=== PATIENT | female | born 1970 | race Caucasian/White ===

== ENCOUNTER → 2020-06-22 15:02 | Outpatient (BNVA) | payer MEDICAID, SELFPAY | PROVIDERS: PCP Nurse Practitioner Family; Visit Provider Specialist | DX: E78.5 Hyperlipidemia, unspecified (principal); I10 Essential (primary) hypertension; R20.0 Anesthesia of skin; R20.2 Paresthesia of skin; G56.02 Carpal tunnel syndrome, left upper limb; F17.210 Nicotine dependence, cigarettes, uncomplicated | CPT/HCPCS: 36415; 80053; 80061; 95908 ==

== ENCOUNTER → 2020-07-19 10:27 | Outpatient (BNVA) | payer SELFPAY | PROVIDERS: PCP Nurse Practitioner Family; Visit Provider Nurse Practitioner Family | DX: R21 Rash and other nonspecific skin eruption (principal); M25.561 Pain in right knee | CPT/HCPCS: 85025; 85651 ==

== ENCOUNTER → 2020-08-01 09:21 | Outpatient (BNVA) | payer MEDICAID, SELFPAY | PROVIDERS: PCP Nurse Practitioner Family; Referring Provider Nurse Practitioner Family; Visit Provider Specialist | DX: G56.02 Carpal tunnel syndrome, left upper limb (principal) | CPT/HCPCS: 73110 ==

== ENCOUNTER 2020-08-01 10:19 | Outpatient (CLI) | payer MEDICAID, SELFPAY | END 2020-08-01 10:20 | disposition home or self-care (01) | LOC: SPT 11:38 | PROVIDERS: PCP Nurse Practitioner Family; Visit Provider Specialist | DX: Z46.89 Encounter for fitting and adjustment of other specified devices (principal); G56.02 Carpal tunnel syndrome, left upper limb | CPT/HCPCS: 87635; L3908 ==

== ENCOUNTER 2020-08-12 13:24 | Inpatient (IN) | payer SELFPAY ==
[2020-08-12 13:44] VITALS: BP 122/87; PULSE 101; RESP 18; TEMP 36.7; O2SAT 98; BMI 30.8
[2020-08-12 17:34] LABS: Add Urine Microscopic? NO
[2020-08-12 17:36] LABS: Basophils # 0.1 10^3/uL (0.0-0.1); Basophils % 0.9 %; Eosinophils # 0.1 10^3/uL (0.0-0.8); Eosinophils % 1.9 %; Hematocrit 45.3 % (37.0-47.0); Hemoglobin 14.9 g/dL (11.5-15.3); Lymphocytes # 1.9 10^3/uL (0.8-4.8); Lymphocytes % 27.4 %; Mean Corpuscular HGB Conc 32.9 g/dL (30.0-36.0); Mean Corpuscular Hemoglobin 31.7 pg (28.0-34.0); Mean Corpuscular Volume 96.4 fL (81-99); Mean Platelet Volume 9.8 fL (7.4-10.4); Monocytes # 0.4 10^3/uL (0.2-0.9); Monocytes % 5.5 %; Neutrophils # 4.46 10^3/uL (1.8-7.7); Nucleated Red Blood Cells % 0 %; Platelet Count 270 10^3/cmm (130-400); Red Cell Distribution Width 14.6 % (12.1-15.1)
[2020-08-12 17:47] LABS: Bilirubin Urine Neg (Negative); Blood Urine Neg (Negative); Glucose Urine UA 2+ (Normal); Ketones Urine Negative (Negative); Leukocyte Esterase Urine Negative (Negative); Nitrate Urine Negative (Negative); Protein Urine Neg (Negative); Specific Gravity, Urine 1.015 (1.005-1.030); Urine Appearance Clear (CLEAR); Urine Color Straw (Yellow); Urobilinogen Urine Norm (Negative); pH Urine 5 (5-7)
[2020-08-12 17:59] VITALS: RESP 18
[2020-08-12 18:07] LABS: Alanine Aminotransferase 62 U/L (0-33); Albumin Level 3.9 g/dL (3.5-5.2); Alkaline Phosphatase 97 IU/L (35-105); Anion Gap 14.9 (5-19); Aspartate Amino Transferase 60 U/L (0-32); Blood Urea Nitrogen 9 mg/dL (6-20); Calcium 9.4 mg/dL (8.5-10.5); Carbon Dioxide 24 mmol/L (22-29); Chloride 99 mmol/L (98-107); Globulin 3.1 g/dL (1.3-4.6); Glomerular Filtration Rate 167.6 mL/min (90-130); Glucose 141 mg/dL (65-115); Osmolality Calculated 279 mOsm/kg (285-295); Potassium 3.9 mmol/L (3.5-5.1); Sodium 134 mmol/L (136-145); Total Bilirubin 0.2 mg/dL (0.15-1.2)
[2020-08-12 18:09] LABS: Acetaminophen < 5.0 ug/mL (10-30); Salicylate < 0.3 mg/dL (3-10)
[2020-08-12 18:12] LABS: Amphetamines Screen Urine Positive (Negative); Barbiturates Screen Urine Negative (Negative); Benzodiazepines Screen Urine Negative (Negative); Cocaine Screen Urine Negative (Negative); Opiate Screen Urine Negative (Negative); PCP Screen Urine Negative (Negative); THC Screen Urine Negative (Negative)
[2020-08-12 18:13] VITALS: RESP 18
[2020-08-12 18:24] LABS: HCG Qualitative Urine. Negative (Negative)
--- NOTE | 2020-08-12 18:55 | W.ED.ANXIETY ---
HPI - Anxiety General: Chief Complaint: Anxiety Stated Complaint: STATES BRIAN WANTS TO GO TO NPU Time Seen by Provider: 08/12/20 14:05 Source: patient Mode of arrival: ambulatory Limitations: no limitations History of Present Illness: HPI narrative: This is a 50 year old female with a history of depression and anxiety who presents to the ED with worsening symptoms of anxiety and depression. She is going through lots of social stressors including losing her home and her significant other. She has tried to go to a homeless half-way but when she called them they were no open and so she has nowhere else to go. She is very depressed and tearful during my evaluation. She denies homicidal or suicidal ideations. She denies hallucinations. MD complaint: anxiety and heart racing Onset (ago): week(s) (2) Symptoms: palpitations and dry mouth Severity: severe Quality: constant Provoking factors: emotional stress Relieving factors: nothing Exacerbating factors: nothing Associated symptoms: Reports palpitations; Deny anorexia, chest pain, chills, confusion, diaphoresis, fever(s), headache(s), malaise, nausea, short of breath, syncope, vomiting or weakness Review of Systems General: Reports: 10 or more systems reviewed and unremarkable except in HPI and below Const: Denies: fever(s), chills, malaise or diaphoresis Card: Reports: palpitations; Denies: chest pain or syncope GI: Denies: nausea or vomiting Neuro: Denies: headache(s) or confusion PFS ED PFSH: Medical History (Reviewed 08/12/20 @ 19:00 by Zakiya Coughlin MD, [facility] Hyperlipemia Hypertension Surgical History (Reviewed 08/12/20 @ 19:00 by Zakiya Coughlin MD, [facility]) History of Family History (Reviewed 08/12/20 @ 19:00 by Zakiya Coughlin MD, [facility]) Mother Diabetes Father Cancer lung cancer Social History (Reviewed 08/12/20 @ 19:00 by Zakiya Coughlin MD, [facility]) Smoking and tobacco status: current every day smoker Physical Exam Const: COMMON NORMALS: no acute distress, average body habitus, patient oriented x3, no limitations, healthy appearing, alert and well nourished HENMT: COMMON NORMALS: normocephalic, atraumatic and moist oral mucous membranes HEAD & SCALP: normocephalic and atraumatic Neck/C-Spine: COMMON NORMALS: no meningeal signs and no JVD Resp: COMMON NORMALS: normal respiratory effort, No retractions, No use of accessory muscles, clear to auscultation bilaterally and percussion normal AUSCULTATION: clear to auscultation bilaterally PERCUSSION: percussion normal Cardio: COMMON NORMALS: no JVD, regular rate, regular rhythm, S1 normal heart sound present, S2 normal heart sound present, No gallops present (Cardio), No clicks present (Cardio), No murmurs present (Cardio), No rub (Cardio) and Peripheral pulses 2+ throughout RATE: regular rate RHYTHM: regular rhythm HEART SOUNDS: S1 normal heart sound present and S2 normal heart sound present PERIPHERAL PULSES: Peripheral pulses 2+ throughout GI: COMMON NORMALS: Normal to inspection, nondistended, normoactive bowel sounds present, Soft to palpation, non-tender, No hepatosplenomegaly present, no masses and no bruits PALPATION: Yes Soft to palpation and Yes No hepatosplenomegaly present Extremity: COMMON NORMALS: normal to inspection, full ROM, capillary refill normal, no calf tenderness and no pedal edema Neuro: COMMON NORMALS: patient oriented x3 SENSORIUM/ORIENTATION: Yes alert MENINGEAL SIGNS: Yes no meningeal signs Skin: COMMON NORMALS: no rashes or lesions noted, no wounds, turgor normal, no jaundice, no petechiae and no mottling GENERAL SKIN EXAM: no rashes or lesions noted and turgor normal Course Consultations: Consultation #1: Discussed the patient with Dr. Moulton, who came to the ED and evaluated her. He kindly accepted the patient to his service. Time: 17:03 Vital Signs: Vital signs: Vital Signs Temperature 98 F 08/12/20 18:59 Pulse Rate 92 08/12/20 18:59 Respiratory Rate 20 H 08/12/20 18:59 Blood Pressure 153/88 08/12/20 18:59 Pulse Oximetry 96 08/12/20 18:59 MDM - Anxiety MDM Narrative: Medical decision making narrative: This unfortunate 50 year old female is undergoing significant life stressors including losing her home and her significant other. She is fairly anxious and depressed. She tried to go to a homeless half-way but they were closed. She is admitted to the NPU for further evaluation and management. Medical Records: Attestation: I reviewed the patient's medical records. Lab Data: Labs: Lab Results 08/12/20 08/12/20 08/12/20 Range/Units 13:51 13:51 13:51 HCG, Qual Negative (Negative) Urine Color Straw (Yellow) Urine Appearance Clear (CLEAR) Urine pH 5 (5-7) Ur Specific Gravit y 1.015 (1.005-1.030) Urine Protein Neg (Negative) Urine Glucose (UA) 2+ (Normal) Urine Ketones Negative (Negative) Urine Blood Neg (Negative) Urine Nitrate Negative (Negative) Urine Bilirubin Neg (Negative) Urine Urobilinogen Norm (Negative) mg/dL Ur Leukocyte Sara ase Negative (Negative) Urine Opiates Scre en Negative (Negative) ng/mL Ur Barbiturates Sc reen Negative (Negative) ng/mL Ur Phencyclidine S crn Negative (Negative) ng/mL Ur Amphetamines Sc reen Positive H (Negative) ng/mL U Benzodiazepines Scrn Negative (Negative) ng/mL Urine Cocaine Scre en Negative (Negative) ng/mL U Marijuana (THC) Screen Negative (Negative) ng/mL Discharge Plan Discharge Patient Disposition: Admitted As Inpatient Admit Provider: Slim Moulton Clinical Impression: Acute anxiety, Homeless Depression Qualifiers: Depression Type: unspecified Qualified Code(s): F32.9 - Major depressive disorder, single episode, unspecified Condition: Stable Coding Level of Care Code ED Dog Handler Or Trainer for Guilherme Ivan Exam Comprehensive
[2020-08-12 18:59] VITALS: BP 153/88; PULSE 92; RESP 20; TEMP 36.6; O2SAT 96
--- NOTE | 2020-08-12 20:07 | P.PN_ITS ---
NPU Therapy Progress Note Therapy Progress Note Date: 08/12/20 Time In: 18:20 Time Out: 18:25 Symptoms Reported: none reported but appears tearful and depressed Mood: sad, tearful Progress Note: SENIOR HOUSEKEEPER approached Mellissa who is resting in her bed. She declines to speak but does state she is having a hard time. She allows SENIOR HOUSEKEEPER to tell her about [facility] services and the [facility] office. Intervention: SENIOR HOUSEKEEPER attempted to engage Mellissa; however, she wants to rest and politely asks if she can talk another time. She does allow SENIOR HOUSEKEEPER to educate about [facility] services and how to access [facility] if needed. She is agreeable to take [facility] card and [facility] pamphlet. Reported Goals Before Discharge: none reported
[2020-08-12] MEDS: nicotine 2 mg Gum BUCCAL (20:18)
[2020-08-12 20:37] VITALS: BP 154/83; PULSE 100; RESP 18; TEMP 37; O2SAT 96
[2020-08-13 06:00] VITALS: BP 152/94; PULSE 84; RESP 17; TEMP 36.8; O2SAT 97
[2020-08-13] MEDS: nicotine 2 mg Gum BUCCAL ×3 (08:12→19:00)
[2020-08-13] MEDS: multivitamin therapeutic Tablet 1 TAB PO (08:12)
[2020-08-13] MEDS: fluoxetine 20 mg Capsule PO (10:32)
[2020-08-13 14:00] VITALS: BP 123/81; PULSE 92; RESP 18; TEMP 36.6; O2SAT 96
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
[2020-08-13 20:12] VITALS: BP 131/76; PULSE 100; RESP 18; TEMP 36.4; O2SAT 97
[2020-08-13] MEDS: trazodone 50 mg Tablet PO (20:23)
--- NOTE | 2020-08-13 20:25 | PC.NURSE ---
pt came to nurses desk requesting med for sleep. Trazodone 50mg given.
--- NOTE | 2020-08-13 20:59 | PC.NURSE ---
Pt resting quietly in room with both eyes closed.
[2020-08-14 06:00] VITALS: BP 148/77; PULSE 78; RESP 16; TEMP 37.1; O2SAT 95
[2020-08-14] MEDS: fluoxetine 20 mg Capsule PO (08:12)
[2020-08-14] MEDS: multivitamin therapeutic Tablet 1 TAB PO (08:12)
[2020-08-14] MEDS: nicotine 2 mg Gum BUCCAL ×2 (09:56→17:13)
[2020-08-14 13:39] VITALS: BP 124/57; PULSE 82; RESP 18; TEMP 36.8; O2SAT 96
--- NOTE | 2020-08-14 14:45 | PM.NPN ---
Subjective NPU Subjective: Interval history: Mellissa presents today reporting that she is tolerating the Prozac but she feels maybe is making her sleepy. We discussed the likelihood that that is making her sleepy but a stressful situation and finally having a place she can rest. But we discussed the possibility of moving it to nighttime if this phenomenon continues. We also discussed connecting with the treatment team the morning and exploring the possibility for rehab. Mental Status Exam MSE Comments: This is an obese woman of descent with hospital scrubs on with limited grooming and adequate eye contact. No abnormal movements except for improving psychomotor retardation. Cooperative with exam in mild distress. Speech was decreased rate and volume. Mood described as anxious, affect congruent and less guarded. Thought process organized. Thought content: Patient denied current suicidal or homicidal ideation, there were no delusions reported or noted, she denied any auditory visualizations. Attention and concentration were intact and memory appeared reliable but none were formally tested. She is alert and oriented x3. Insight and judgment were limited, but improving impulse control is limited. Vitals/I&O/Wt Last Vital Signs Temp 98.2 F 08/14/20 20:57 Pulse 82 08/14/20 20:57 Resp 17 08/14/20 20:57 BP 132/65 08/14/20 20:57 Pulse Ox 96 08/14/20 20:57 Weight last 48 hrs Weight 71.668 kg Data NPU : 08/12/20 17:10 08/12/20 17:10 A&P Additional A&P Information (1) Acute anxiety: (2) Depression: (3) Homeless: (4) Left carpal tunnel syndrome: (5) Hyperlipemia: (6) Hypertension: (7) Adjustment disorder with mixed disturbance of emotions and conduct: Additional A&P Information This is a 51-year-old female with a long history of addiction and recent psychosocial challenges which together became overwhelming and led to uncontrolled anxiety as well as brief suicidal thinking which she currently denies but is open to medication for her acute mental health issues. 1. Continue current medication. Start Inderal 20 mg p.o. 3 times daily in the morning. 2. Continue every 15 minute checks for safety. 3. Encourage individual, group and milieu therapies. 4. Encourage sober living treatment after discharge at the highest level of care to which he is willing to commit. Involuntary Hold Information 96 Hour Hold: 96 Hour Involuntary Admission: No Attestations NPU Medical Necessity Statement*: Inpatient hospitalization is medically necessary and the clinically appropriate intervention at this time. We will monitor medications and make changes as indicated. Patient will be in the hospital for over two midnights. Likely length of stay 2-4 days. Coding Level of Care Code Acute Printing Machine Operator for Guilherme Ivan
[2020-08-14 20:57] VITALS: BP 132/65; PULSE 82; RESP 17; TEMP 36.8; O2SAT 96
[2020-08-15 06:00] VITALS: BP 147/77; PULSE 62; RESP 18; TEMP 36.4; O2SAT 98
[2020-08-15] MEDS: multivitamin therapeutic Tablet 1 TAB PO (07:50)
[2020-08-15] MEDS: fluoxetine 20 mg Capsule PO (07:51)
[2020-08-15] MEDS: nicotine 2 mg Gum BUCCAL (11:40)
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
[2020-08-15 12:55] VITALS: BP 147/77; PULSE 62; RESP 18; TEMP 36.4; O2SAT 98
--- NOTE | 2020-08-17 17:06 | PC.RESP ---
Smoking Cessation information sent to patient.
== END 2020-08-15 13:48 | disposition home or self-care (01) | DRG 880 ==
LOC: ER 14:05 → NP 18:14
PROVIDERS: Admitting Provider Psychiatry & Neurology Psychiatry; Emergency Provider Family Medicine; PCP Nurse Practitioner Family; Visit Provider Psychiatry & Neurology Psychiatry
DX: F41.9 Anxiety disorder, unspecified (principal); R45.851 Suicidal ideations; F15.20 Other stimulant dependence, uncomplicated; F32.9 Major depressive disorder, single episode, unspecified; F43.25 Adjustment disorder with mixed disturbance of emotions and conduct; F17.210 Nicotine dependence, cigarettes, uncomplicated; E78.5 Hyperlipidemia, unspecified; I10 Essential (primary) hypertension; G56.02 Carpal tunnel syndrome, left upper limb; Z59.0 Homelessness; Z81.8 Family history of other mental and behavioral disorders
CPT/HCPCS: 80053; 80306; 80307; 81003; 81025; 85025; 99285

== ENCOUNTER 2020-08-30 19:03 | Emergency (ER) | payer SELFPAY ==
[2020-08-30 19:04] VITALS: BP 163/96; PULSE 108; RESP 18; TEMP 36.6; O2SAT 96; BMI 37.0
[2020-08-30 19:51] LABS: Add Urine Microscopic? NO; Charge for UA Resulting for Rev
[2020-08-30 19:52] LABS: Bilirubin Urine Neg (Negative); Blood Urine Neg (Negative); Glucose Urine UA 2+ (Normal); Ketones Urine Negative (Negative); Leukocyte Esterase Urine Negative (Negative); Nitrate Urine Negative (Negative); Protein Urine Neg (Negative); Specific Gravity, Urine 1.005 (1.005-1.030); Urine Appearance Clear (CLEAR); Urine Color Colorless (Yellow); Urobilinogen Urine Norm (Negative); pH Urine 6 (5-7)
[2020-08-30 20:03] VITALS: BP 143/63; PULSE 115; RESP 15; O2SAT 96
[2020-08-30 20:39] LABS: Amphetamines Screen Urine Negative (Negative); Barbiturates Screen Urine Negative (Negative); Benzodiazepines Screen Urine Negative (Negative); Cocaine Screen Urine Negative (Negative); Opiate Screen Urine Negative (Negative); PCP Screen Urine Negative (Negative); THC Screen Urine Negative (Negative)
[2020-08-30 20:51] LABS: Basophils # 0.1 10^3/uL (0.0-0.1); Eosinophils # 0.1 10^3/uL (0.0-0.8); Eosinophils % 1.1 %; Hematocrit 46.7 % (37.0-47.0); Hemoglobin 15.6 g/dL (11.5-15.3); Lymphocytes # 3.3 10^3/uL (0.8-4.8); Mean Corpuscular HGB Conc 33.4 g/dL (30.0-36.0); Mean Corpuscular Hemoglobin 31.3 pg (28.0-34.0); Mean Corpuscular Volume 93.8 fL (81-99); Mean Platelet Volume 9.2 fL (7.4-10.4); Monocytes # 0.6 10^3/uL (0.2-0.9); Monocytes % 6.8 %; Neutrophils # 4.26 10^3/uL (1.8-7.7); Neutrophils % 50.9 %; Nucleated Red Blood Cells % 0 %; Platelet Count 327 10^3/cmm (130-400); Red Blood Count 4.98 10^6/uL (4.1-5.3); Red Cell Distribution Width 14.6 % (12.1-15.1); White Blood Count 8.4 10^3/uL (4.0-10.0)
[2020-08-30 20:52] LABS: HCG Qualitative Urine. Negative (Negative)
[2020-08-30 21:07] LABS: Alanine Aminotransferase 52 U/L (0-33); Albumin Level 4.3 g/dL (3.5-5.2); Alcohol Level 264 mg/dL (0-10); Alkaline Phosphatase 97 IU/L (35-105); Anion Gap 17.6 (5-19); Aspartate Amino Transferase 37 U/L (0-32); Blood Urea Nitrogen 8 mg/dL (6-20); Calcium 9.1 mg/dL (8.5-10.5); Carbon Dioxide 25 mmol/L (22-29); Chloride 101 mmol/L (98-107); Globulin 2.6 g/dL (1.3-4.6); Glucose 161 mg/dL (65-115); Osmolality Calculated 292 mOsm/kg (285-295); Potassium 3.6 mmol/L (3.5-5.1); Sodium 140 mmol/L (136-145); Total Bilirubin 0.2 mg/dL (0.15-1.2); Total Protein 6.9 g/dL (6.6-8.7)
[2020-08-30 21:08] LABS: Acetaminophen < 5.0 ug/mL (10-30); Salicylate < 0.3 mg/dL (3-10)
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
--- NOTE | 2020-08-30 23:26 | PC.NURSE ---
patient arguing with staff and on the phone having whoever is on there to arguing as to why the patient is being discharged; patient was brought in by EMS without shoes, patient angry we don't have shoes to give her; non-slip socks given to patient to wear. it is note worthy the patient did arrive with her iPhone, camo jacket and backpack, all which she left with. patient did leave without her paperwork including a prescription for prozac
== END 2020-08-30 23:25 | disposition home or self-care (01) ==
PROVIDERS: Emergency Provider Family Medicine; PCP Nurse Practitioner Family
DX: F10.920 Alcohol use, unspecified with intoxication, uncomplicated (principal); F32.9 Major depressive disorder, single episode, unspecified; E78.5 Hyperlipidemia, unspecified; I10 Essential (primary) hypertension; F17.210 Nicotine dependence, cigarettes, uncomplicated; Y90.8 Blood alcohol level of 240 mg/100 ml or more
CPT/HCPCS: 36415; 80053; 80306; 80307; 81003; 81025; 85025; 99283

== ENCOUNTER 2021-06-01 18:04 | Emergency (ER) | payer MEDICAID, SELFPAY ==
[2021-06-01 18:08] VITALS: BP 102/52; PULSE 122; RESP 24; TEMP 36.7; O2SAT 97; BMI 31.2
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
[2021-06-01] MEDS: LORazepam 1 mg Tablet PO (18:46)
[2021-06-01] MEDS: acetaminophen 500 mg Tablet PO (18:46)
[2021-06-01 18:50] VITALS: BP 110/65; PULSE 90; RESP 20; TEMP 36.7; O2SAT 97
[2021-06-01 19:28] VITALS: PULSE 99; RESP 18; O2SAT 97
== END 2021-06-01 19:30 ==
PROVIDERS: Emergency Provider Emergency Medicine; PCP Nurse Practitioner Family
DX: S00.83XA Contusion of other part of head, initial encounter (principal); I10 Essential (primary) hypertension; E78.5 Hyperlipidemia, unspecified; F17.210 Nicotine dependence, cigarettes, uncomplicated; Y09 Assault by unspecified means
CPT/HCPCS: 70450; 70486; 72125; 99283